=== PATIENT | female | born 1975 | race Caucasian/White ===

== ENCOUNTER 2018-11-30 14:10 | Emergency (ER) | payer BC ==
[2018-11-30 14:16] VITALS: BP 133/84
--- NOTE | 2018-11-30 14:49 | ED ---
Throat Pain/Nasal Congestion - HPI Summary HPI Summary: This patient is a 43 year old F presenting to [facility] with a chief complaint of a small swollen area to the right upper eyelid since yesterday that has worsened today. She suspects she was bitten by a bug while sleeping but is unsure of the cause of her symptoms. She denies any pain or vision changes. She is able to move her eye well. - History of Current Complaint Chief Complaint: EDEyeProblem Time Seen by Provider: 11/30/18 14:41 Hx Obtained From: Patient Onset/Duration: Gradual Onset, Lasting Days Severity: Mild - Allergies/Home Medications Allergies/Adverse Reactions: Allergies Allergy/AdvReac Type Severity Reaction Status Date / Time No Known Allergies Allergy Verified 11/30/18 14:15 PMH/Surg Hx/FS Hx/Imm Hx Opthamlomology History: Denies: Hx Legally Blind EENT History: Denies: Hx Deafness Psychiatric History: Reports: Hx Depression Infectious Disease History: No Infectious Disease History: Denies: Traveled Outside the [place] in Last 30 Days - Family History Known Family History: Negative: Renal Disease - Social History Alcohol Use: Occasionally Substance Use Type: Reports: None Smoking Status (MU): Never Smoked Tobacco Review of Systems Negative: Fever Positive: Other - swelling. Negative: Blurred Vision All Other Systems Reviewed And Are Negative: Yes Physical Exam - Summary Physical Exam Summary: Appearance: The patient is well-nourished in no acute distress and in no acute pain. Skin: The skin is warm and dry and skin color reflects adequate perfusion. HEENT: The head is normocephalic and atraumatic. The pupils are equal and reactive. The conjunctivae are clear and without drainage. Nares are patent and without drainage. Mouth reveals moist mucous membranes and the throat is without erythema and exudate. The external ears are intact. The ear canals are patent and without drainage. The tympanic membranes are intact. Right upper tarsus has a small indurated area about 1cm by .5cm with some overlapping erythema Neck: The neck is supple with full range of motion and non-tender. There are no carotid bruits. There is no neck vein distension. Respiratory: Chest is non-tender. Lungs are clear to auscultation and breath sounds are symmetrical and equal. Cardiovascular: Heart is regular rate and rhythm. There is no murmur or rub auscultated. There is no peripheral edema and pulses are symmetrical and equal. Abdomen: The abdomen is soft and non-tender. There are normal bowel sounds heard in all four quadrants and there is no organomegaly palpated. Musculoskeletal: There is no back tenderness noted. Extremities are non-tender with full range of motion. There is good capillary refill. There is no peripheral edema or calf tenderness elicited. Neurological: Patient is alert and oriented to person, place and time. The patient has symmetrical motor strength in all four extremities. Cranial nerves are grossly intact. Deep tendon reflexes are symmetrical and equal in all four extremities. Psychiatric: The patient has an appropriate affect and does not exhibit any anxiety or depression Triage Information Reviewed: Yes Vital Signs On Initial Exam: Initial Vitals Temp Pulse Resp BP Pulse Ox 97.8 F 98 18 133/84 98 11/30/18 14:11 11/30/18 14:11 11/30/18 14:11 11/30/18 14:11 11/30/18 14:11 Vital Signs Reviewed: Yes Diagnostics - Vital Signs Vital Signs Temp Pulse Resp BP Pulse Ox 11/30/18 14:11 97.8 F 98 18 133/84 98 - Laboratory Lab Statement: Any lab studies that have been ordered have been reviewed, and results considered in the medical decision making process. EENT Course/Dx - Course Course Of Treatment: Ms. Lang presented with a red sore area on her right upper eyelid. Is not a stye but looks like she may have been bitten by something and now it is getting infected. I recommended topical antibiotics and systemic for a few days. - Diagnoses Provider Diagnoses: Skin infection Discharge - Sign-Out/Discharge Documenting (check all that apply): Patient Departure - discharge Patient Received Moderate/Deep Sedation with Procedure: No - Discharge Plan Condition: Stable Disposition: HOME Prescriptions: Cephalexin CAP* [Keflex CAP*] 500 mg PO TID #15 cap Patient Education Materials: Cellulitis (ED) Referrals: [facility] [Outside] - If Needed (If you do not have a primary care physician call for follow up care if needed) Additional Instructions: RETURN TO THE EMERGENCY DEPARTMENT FOR CHANGING OR WORSENING SYMPTOMS. - Billing Disposition and Condition Condition: STABLE Disposition: Home - Attestation Statements Document Initiated by Scribe: Yes Documenting Scribe: Annette Yang Provider For Whom Scribe is Documenting (Include Credential): Jay Desir MD Scribe Attestation: I, Annette Yang, scribed for Jay Desir MD on 11/30/18 at 2037. Scribe Documentation Reviewed: Yes Provider Attestation: The documentation as recorded by the scribe, Annette Yang accurately reflects the service I personally performed and the decisions made by me, Jay Desir MD Status of Scribe Document: Viewed
[2018-11-30] MEDS ORDERED: Neosporin TOPICAL OINT* 1 EA PACKET TOPICAL ONE (14:50)
== END 2018-11-30 15:04 | disposition home or self-care (01) ==
LOC: ED 14:10
DX: L08.9 Local infection of the skin and subcutaneous tissue, unspecified (principal); F32.9 Major depressive disorder, single episode, unspecified
CPT/HCPCS: 99282; A9270-GY